=== PATIENT | male | born 2000 | race African-American/Black ===

== ENCOUNTER 2023-05-31 13:31 | Emergency (ER) | payer SELFPAY ==
[~2023-05-31] VITALS: Ht 170.2 cm; Wt 54.3 kg
[2023-05-31 13:39] VITALS: O2SAT 98
[2023-05-31] MEDS ORDERED: FLUT9.9S BOTHNSTRLS (14:57)
[2023-05-31] MEDS ORDERED: D-ME473S50 PO (14:57)
[2023-05-31] MEDS ORDERED: NAPR-681 PO (14:57)
[2023-05-31] MEDS ORDERED: AMOX-494 MT (14:57)
[2023-05-31 15:26] VITALS: BP 120/76; PULSE 109; RESP 18; TEMP 98.3
== END 2023-05-31 15:34 | disposition home or self-care (01) ==
LOC: ER 13:31
DX: J01.90 Acute sinusitis, unspecified (principal); R51.9 Headache, unspecified; K02.9 Dental caries, unspecified; Z98.890 Other specified postprocedural states
CPT/HCPCS: 99281; 99283

== ENCOUNTER 2023-06-29 10:46 | Emergency (ER) | payer MEDICAID ==
[~2023-06-29] VITALS: Ht 165.1 cm; Wt 54.0 kg
[~2023-06-29 10:46] MED LIST: AMOX-494 MT; D-ME473S50 PO; FLUT9.9S BOTHNSTRLS; NAPR-681 PO
[2023-06-29 10:51] VITALS: O2SAT 99
[2023-06-29 11:16] VITALS: BP 134/79; PULSE 120; RESP 25
[2023-06-29 11:24] LABS: PROTHROMBIN TIME 11.6 sec (9.6-11.0)
[2023-06-29 11:26] LABS: BASOPHILS % 0.5 % (0.0-2.0); DIFFERENTIAL COMMENT 0; EOSINOPHILS % 2.6 % (0.0-5.0); HEMATOCRIT. 39.6 % (42.0-52.0); MEAN CORPUSCULAR HEMOGLOBIN 24.7 pg (28.0-32.0); MEAN CORPUSCULAR HGB CONC 32.9 g/dL (31.0-37.0); MEAN CORPUSCULAR VOLUME 75.1 fL (80.0-94.0); MEAN PLATELET VOLUME 8.5 fl (7.4-10.4); NEUTROPHILS % 49.9 % (40.0-76.0); PLATELET 329 x1000/uL (130-400); RED BLOOD CELL COUNT 5.27 mill/uL (4.7-6.1); RED CELL DISTRIBUTION WIDTH 14.3 % (11.6-14.6); WHITE BLOOD COUNT 4.6 x1000/uL (4.5-11.0)
[2023-06-29 11:27] LABS: ALANINE AMINOTRANSFERASE 25 IU/L (10-49); ALBUMIN 4.6 g/dL (3.2-4.8); ASPARTATE AMINOTRANSFERASE 26 IU/L (<34); BILIRUBIN TOTAL 1.2 mg/dL (0.1-1.0); CALCIUM 10.1 mg/dL (8.7-10.4); CARBON DIOXIDE 28 mEq/L (21-32); CHLORIDE 104 mEq/L (98-107); CREATININE 0.6 mg/dL (0.6-1.3); GLUCOSE 119 mg/dL (70-105); POTASSIUM 4.3 mEq/L (3.5-5.1); PROTEIN TOTAL 7.7 g/dL (6.0-8.3); SODIUM 137 mEq/L (136-145); UREA NITROGEN BLOOD 11 mg/dL (9-23)
[2023-06-29] MEDS: SODIUM CHLORIDE 0.9% 100 ML IV ONE (11:28)
[2023-06-29] MEDS: ONDANSETRON HCL 4MG/2ML INJ IM ONE (11:28)
[2023-06-29] MEDS ORDERED: ONDA4TAB11 PO (13:12)
== END 2023-06-29 11:20 | disposition home or self-care (01) ==
LOC: ER 10:46
DX: R11.2 Nausea with vomiting, unspecified (principal)
CPT/HCPCS: 99285; 96360; 71045; 80053; 85025; 85610; 86850; 86900; 86901; 36415; 93005; 96372; J2405; J7050